=== PATIENT | female | born 1965 | race Caucasian/White ===

== ENCOUNTER 2016-09-12 16:24 | Inpatient (IN) | payer MEDICARE, BC ==
[~2016-09-12 16:24] MED LIST: ALBUTEROL I0.5 ML/EA AERO NEB; AMINOPYRIDINE PO; ASPIR 8181 MG PO; BACLOFEN PUMP; BACLOFEN10 M1 PO; BACLOFEN20 MG PO; BETASERON0.3 MG SQ; FENTANYL1 EAC1 TD; FENTANYL1 PATCH .7 TD; GABAPENTIN300 MG PO; PROZAC20 M3 PO; TOPROL XL50 MG PO; VESICARE5 MG PO; VITAMIN D1000 UNIT PO; VITAMIN D31000 UNI3 PO
[2016-09-12] MEDS ORDERED: WELLBUTRIN SR150 M2 PO (18:17)
[2016-09-12] MEDS ORDERED: CIPRO500 M2 PO (18:18)
[2016-09-12] MEDS ORDERED: CYCLOBENZAPRINE10 M1 PO (18:19)
[2016-09-12] MEDS ORDERED: CYMBALTA30 M1 PO (18:22)
[2016-09-12] MEDS ORDERED: MUCINEX DM ER1 EAC1 PO (18:22)
[2016-09-12] MEDS ORDERED: FENTANYL1 EAC3 TD (18:24)
[2016-09-12] MEDS ORDERED: LEVAQUIN500 M1 PO (18:25)
[2016-09-12] MEDS ORDERED: LINZESS290 MC1 PO (18:25)
[2016-09-12] MEDS ORDERED: MIRVASO30 GM TP (18:26)
[2016-09-12] MEDS ORDERED: MECLIZINE HCL25 M3 PO (18:26)
[2016-09-12] MEDS ORDERED: PREDNISONE10 M1 PO (18:28)
[2016-09-12] MEDS ORDERED: TECFIDERA240 MG PO (18:29)
[2016-09-12] MEDS ORDERED: SENNA-DOCUSATE1 EAC1 PO (18:29)
[2016-09-12] MEDS ORDERED: DUO-NEB INH (18:33)
[2016-09-12] MEDS ORDERED: BACLOFEN (18:34)
[2016-09-12 20:24] LABS: CREATININE 0.46 mg/dl (0.50-1.10); eGFR VALUE FOR BLACK >90 mL/Min
--- NOTE | 2016-09-12 21:10 | NUR ---
VIRTUAL CARE NOTE: PT. UP TO USE THE COMMODE. THIS NURSE ON UNIT DUE TO CAMERA MALFUNCTION AND HELPING CLARIFICATION OF MEDICATIONS FOR FLOOR STAFF. ENCOUARGED TO CALL FOR NEEDS. STATES VERBAL GRATITUDE.
[2016-09-12] MEDS ORDERED: BACLOFEN10 M1 PO ×2 (21:22→21:23)
[2016-09-12] MEDS ORDERED: BACLOFEN20 M1 PO ×2 (21:22→21:24)
[2016-09-13 06:04] LABS: HCT-HEMATOCRIT 39.9 % (34.0-49.0); HGB-HEMOGLOBIN 13.3 gm/dl (12.0-15.5); IMMATURE GRANULOCYTES ABSOLUTE 0.11 tho/cmm (0-0.03); IMMATURE GRANULOCYTES PERCENT 0.8 % (0-0.3); LYMPH % 20.5 % (20-45); LYMPH ABSOLUTE COUNT 2.9 tho/cmm (0.8-4.5); MCHC MEAN CORPUSCULAR HGB CONC 33.3 % (32.0-36.0); MCV (MEAN CELL VOLUME) 89.9 fl (82.0-96.0); MEAN PLATELET VOLUME 9.2 cmc (9.4-12.4); MONO % 3.9 % (0-12); MONOCYTE ABSOLUTE COUNT 0.6 tho/cmm (0.0-1.2); NEUTROPHIL ABSOLUTE COUNT 10.6 tho/cmm (1.6-8.0); NEUTROPHIL-AUTOMATED 10.6 tho/cmm (1.6-8.0); NEUTROPHILS % 74.8 % (40-80); PLATELET COUNT 456 tho/cmm (150-450); RED BLOOD COUNT 4.44 mil/cmm (4.00-5.20); RED CELL DISTRIBUTION WIDTH 15.9 % (12.4-16.4); WHITE BLOOD COUNT 14.2 tho/cmm (4.0-10.0)
[2016-09-13 06:32] LABS: ANION GAP 12 mmol/L (0-20); BLOOD UREA NITROGEN 22 mg/dl (6-24); CALCIUM 8.9 mg/dl (8.5-10.5); CARBON DIOXIDE-VENOUS 28 mmol/L (22-32); CHLORIDE 106 mmol/l (96-110); GLUCOSE 143 mg/dL (70-110); MAGNESIUM 2.4 mg/dl (1.8-2.6); POTASSIUM 4.2 mmol/L (3.7-5.1); SODIUM 142 mmol/L (135-145)
[2016-09-13 06:44] LABS: PROCALCITONIN 0.06 ng/ml (0.05-0.09)
[2016-09-13 07:01] LABS: C-REACTIVE PROTEIN <0.3 mg/dl (0-0.9); eGFR VALUE FOR BLACK >90 mL/Min
[2016-09-13 07:08] LABS: ESR-ERYTHROCYTE SED RATE 65 mm/hr (0-30)
--- NOTE | 2016-09-13 14:45 | NUR ---
VIRTUAL CARE NOTE: ROOM OFFLINE, UNABLE TO ROUND AT THIS TIME
[2016-09-13 14:55] LABS: BAL APPEARANCE BLOODY (CLEAR); BAL COLOR RED (COLORLESS)
[2016-09-13 15:46] LABS: BAL EOSINOPHILS 0 %; BAL LYMPHOCYTES 11 %; BAL NEUTROPHILS 79 %
--- NOTE | 2016-09-14 21:49 | NUR ---
VIRTUAL CARE NOTE: ASSESSMENT DEFERRED. PT EITHER SLEEPING OR WITH STAFF. WILL CONTINUE WITH CHART REVIEW.
[2016-09-15 06:12] LABS: HCT-HEMATOCRIT 39.3 % (34.0-49.0); HGB-HEMOGLOBIN 12.9 gm/dl (12.0-15.5); MCH (MEAN CORPUSCULAR HGB) 29.5 pg (28.0-32.0); MCHC MEAN CORPUSCULAR HGB CONC 32.8 % (32.0-36.0); MCV (MEAN CELL VOLUME) 89.9 fl (82.0-96.0); MEAN PLATELET VOLUME 9.2 cmc (9.4-12.4); NEUTROPHIL-AUTOMATED 7.6 tho/cmm (1.6-8.0); PLATELET COUNT 466 tho/cmm (150-450); RED BLOOD COUNT 4.37 mil/cmm (4.00-5.20); RED CELL DISTRIBUTION WIDTH 15.9 % (12.4-16.4); WHITE BLOOD COUNT 17.2 tho/cmm (4.0-10.0)
[2016-09-15 06:31] LABS: ANION GAP 11 mmol/L (0-20); BLOOD UREA NITROGEN 22 mg/dl (6-24); CALCIUM 8.6 mg/dl (8.5-10.5); CARBON DIOXIDE-VENOUS 29 mmol/L (22-32); CHLORIDE 107 mmol/l (96-110); CREATININE 0.48 mg/dl (0.50-1.10); GLUCOSE 104 mg/dL (70-110); POTASSIUM 3.9 mmol/L (3.7-5.1); SODIUM 143 mmol/L (135-145); eGFR VALUE FOR BLACK >90 mL/Min
[2016-09-15 07:40] LABS: BAND % 1 % (0-20); BAND ABSOLUTE COUNT 0.2 tho/cmm (0-2.0)
[2016-09-15] MEDS ORDERED: ASTELIN NASAL SPRAY (15:31)
[2016-09-15] MEDS ORDERED: PREDNISONE10 M1 PO (15:32)
[2016-09-15] MEDS ORDERED: AUGMENTIN 875-1 EAC2 PO (15:33)
[2016-09-15] MEDS ORDERED: NORVASC5 M2 PO (15:46)
[2016-09-15] MEDS ORDERED: AFRIN30 ML (16:59)
== END 2016-09-15 17:20 | DRG 166 ==
LOC: 5WD 16:24
PROVIDERS: Family Medicine; Hospitalist; Internal Medicine Cardiovascular Disease; Internal Medicine Critical Care Medicine; ADMIT Internal Medicine
PROC: 0B9L8ZX Drainage of Left Lung, Via Natural or Artificial Opening Endoscopic, Diagnostic (ICD-10-PCS; principal; 2016-09-13)
PROC: 0B9F8ZZ Drainage of Right Lower Lung Lobe, Via Natural or Artificial Opening Endoscopic (ICD-10-PCS; 2016-09-14)
DX: J18.9 Pneumonia, unspecified organism (principal); G82.50 Quadriplegia, unspecified; G35 Multiple sclerosis; J98.09 Other diseases of bronchus, not elsewhere classified; J98.11 Atelectasis; D72.829 Elevated white blood cell count, unspecified; T38.0X5A Adverse effect of glucocorticoids and synthetic analogues, initial encounter; I10 Essential (primary) hypertension; K59.09 Other constipation; G47.33 Obstructive sleep apnea (adult) (pediatric); Z99.3 Dependence on wheelchair; Z79.82 Long term (current) use of aspirin; M19.90 Unspecified osteoarthritis, unspecified site; Z88.2 Allergy status to sulfonamides
CPT/HCPCS: J0456; J1650; J2250; J2405; J2543; J2930; J3010; J7030; J7050